=== PATIENT | male | born 1980 | race Caucasian/White ===

== ENCOUNTER 2023-08-18 13:15 | Inpatient (IN) | payer MEDICAID ==
[~2023-08-18] VITALS: Ht 177.8 cm; Wt 105.3 kg
[2023-08-18 14:14] LABS: Basophils # (auto) 0 10 ^3/uL (0-0.2); Basophils % (auto) 0.5 % (0.0-2.0); Eosinophils # (auto) 0.1 10 ^3/uL (0-0.8); Eosinophils % (auto) 1.2 % (0.0-7.0); Hematocrit 39.4 % (41.0-53.0); Hemoglobin 13.2 g/dL (13.5-17.5); Lymphocytes # (auto) 2.3 10 ^3/uL (0.4-5.4); Lymphocytes % (auto) 25.8 % (10.0-50.0); Mean Corpuscular Hgb Conc. 33.6 g/dL (32.0-36.0); Mean Corpuscular Volume 86.4 fL (80.0-100.0); Monocytes # (auto) 0.6 10 ^3/uL (0-1.3); Monocytes % (auto) 6.7 % (0.0-12.0); Neutrophils % (auto) 65.8 % (37.0-80.0); Nucleated Red Blood Cells % 0.1 %; Red Blood Cells 4.55 10^6/uL (4.5-5.90); Red Cell Distribution Width 13.8 % (11.8-14.3); White Blood Cell 9.1 10^3/uL (4.4-10.8)
[2023-08-18 14:33] LABS: Alanine Aminotransferase 14 U/L (7-40); Albumin 4.5 g/dL (3.2-4.8); Alkaline Phosphatase 104 U/L (46-116); Anion Gap 6 (5-15); Aspartate Aminotransferase < 8 U/L (13-40); BUN/Creatinine Ratio 11.7 (10.0-20.0); Bilirubin, Total 0.5 mg/dL (0.2-1.0); Blood Urea Nitrogen 13 mg/dL (9-23); Calcium 9.7 mg/dL (8.5-10.1); Carbon Dioxide 28 mmol/L (20-30); Chloride 103 mmol/L (98-107); Glucose 102 mg/dL (74-106); Potassium 4.6 mmol/L (3.5-5.1); Sodium 137 mmol/L (136-145); Total Protein 6.9 g/dL (5.7-8.2)
[2023-08-18 14:37] LABS: Partial Thromboplastin Time 29.6 SEC (24.5-34.5); Prothrombin Time 10.5 sec (9.3-11.8)
[2023-08-18 14:42] LABS: CRP High Sensitivity 3.56 mg/dL (<1.0)
[2023-08-18 14:53] LABS: Erythrocyte Sedimentation Rate 18 mm/hr (0-20)
[2023-08-18] MEDS ORDERED: ENOXAPARIN SOD 100 MG/1 ML SYRINGE SC ONE (19:15)
[2023-08-18] MEDS ORDERED: ONDANSETRON HCL 4 MG/2 ML VIAL IV PRN (20:45)
[2023-08-18] MEDS ORDERED: ACETAMINOPHEN 325 MG TAB PO PRN (20:45)
[2023-08-18] MEDS ORDERED: TEMAZEPAM 15 MG CAP PO PRN (22:00)
[2023-08-19 07:30] VITALS: PULSE 80; RESP 17; O2SAT 96
[2023-08-19] MEDS: ENOXAPARIN SOD 120 MG/0.8 ML SYRINGE SC SCH ×2 (10:45→21:18)
[2023-08-19] MEDS: LABETALOL HCL 200 MG TAB PO SCH ×3 (10:45→21:17)
[2023-08-19] MEDS: amLODIPine BESYLATE 5 MG TAB PO SCH (10:45)
[2023-08-19 11:46] LABS: Basophils # (auto) 0 10 ^3/uL (0-0.2); Basophils % (auto) 0.3 % (0.0-2.0); Eosinophils # (auto) 0.1 10 ^3/uL (0-0.8); Eosinophils % (auto) 1.1 % (0.0-7.0); Hematocrit 39.5 % (41.0-53.0); Hemoglobin 13.3 g/dL (13.5-17.5); Lymphocytes # (auto) 2.1 10 ^3/uL (0.4-5.4); Mean Corpuscular Hgb Conc. 33.6 g/dL (32.0-36.0); Mean Corpuscular Volume 86.4 fL (80.0-100.0); Monocytes # (auto) 0.6 10 ^3/uL (0-1.3); Monocytes % (auto) 6.6 % (0.0-12.0); Neutrophils # (auto) 6.3 10 ^3/uL (1.6-8.6); Nucleated Red Blood Cells % 0.2 %; Red Blood Cells 4.58 10^6/uL (4.5-5.90); White Blood Cell 9.1 10^3/uL (4.4-10.8)
[2023-08-19] MEDS: traZODone HCL 50 MG TAB PO SCH ×2 (13:29→21:21)
[2023-08-19] MEDS: ATORVASTATIN 20 MG TAB PO SCH ×2 (13:30→21:23)
[2023-08-19 13:53] LABS: Urine Bacteria NONE SEEN /hpf (None Seen); Urine Blood Negative /uL (Negative); Urine Clarity Clear (Clear); Urine Color Colorless (Yellow); Urine Protein, UAD Negative (Negative); Urine Specific Gravity 1.008 (1.001-1.035); Urine Urobilinogen Normal (Negative); Urine WBC 1 /hpf (0 - 3); Urine pH 6.5 (5.0-8.0)
[2023-08-19] MEDS: HYDROcodone-ACET 5/325MG TAB PO PRN (14:40)
[2023-08-19 17:15] LABS: Chloride 106 mmol/L (98-107); Potassium 4.9 mmol/L (3.5-5.1); Sodium 139 mmol/L (136-145)
[2023-08-19 17:16] LABS: Anion Gap 7 (5-15); Carbon Dioxide 26 mmol/L (20-30)
[2023-08-19 17:17] LABS: Calcium 9.8 mg/dL (8.5-10.1)
[2023-08-19 17:21] LABS: BUN/Creatinine Ratio 9.9 (10.0-20.0); Blood Urea Nitrogen 10 mg/dL (9-23); Glucose 108 mg/dL (74-106)
[2023-08-19 19:43] LABS: INR 1.09 (0.9-1.15); Prothrombin Time 11.4 sec (9.3-11.8)
[2023-08-19] MEDS ORDERED: ATOR40TA52 PO (22:23)
[2023-08-19] MEDS ORDERED: LABE100T4 PO (22:23)
[2023-08-20] VITALS (7 sets, daily range): BP systolic 99–148; BP diastolic 54–99; PULSE 72–87; RESP 16–19; TEMP 97.6–98.6; O2SAT 93–98
[2023-08-20] MEDS: amLODIPine BESYLATE 5 MG TAB PO SCH (08:45)
[2023-08-20] MEDS: LABETALOL HCL 200 MG TAB PO SCH ×2 (08:46→22:00)
[2023-08-20] MEDS: HYDROcodone-ACET 5/325MG TAB PO PRN (08:47)
[2023-08-20] MEDS: ENOXAPARIN SOD 120 MG/0.8 ML SYRINGE SC SCH ×2 (08:48→22:15)
[2023-08-20] MEDS: traZODone HCL 50 MG TAB PO SCH (22:00)
[2023-08-20] MEDS: ATORVASTATIN 20 MG TAB PO SCH (22:15)
[2023-08-21 05:00] VITALS: BP 141/81; PULSE 70; RESP 20; TEMP 97.8; O2SAT 98
[2023-08-21 09:00] VITALS: BP 136/88; PULSE 84; RESP 18; TEMP 98; O2SAT 95
[2023-08-21] MEDS: amLODIPine BESYLATE 5 MG TAB PO SCH (11:00)
[2023-08-21] MEDS: LABETALOL HCL 200 MG TAB PO SCH ×2 (11:00→21:40)
[2023-08-21] MEDS: ENOXAPARIN SOD 120 MG/0.8 ML SYRINGE SC SCH ×2 (11:04→21:41)
[2023-08-21 13:00] VITALS: BP 121/78; PULSE 84; RESP 18; TEMP 98.2; O2SAT 97
[2023-08-21 17:00] VITALS: BP 135/77; PULSE 82; RESP 18; TEMP 98.2; O2SAT 96
[2023-08-21] MEDS: ATORVASTATIN 20 MG TAB PO SCH (21:40)
[2023-08-21] MEDS: traZODone HCL 50 MG TAB PO SCH (21:41)
[2023-08-21 22:00] VITALS: BP_SYST 103; BP_SYST 132; BP_DIAS 44; BP_DIAS 85; PULSE 67; PULSE 86; RESP 18; TEMP 98.1; TEMP 98.5; O2SAT 94; O2SAT 95
[2023-08-22 05:00] VITALS: BP 117/75; PULSE 85; RESP 16; TEMP 98.3; O2SAT 95
[2023-08-22] MEDS: HYDROcodone-ACET 5/325MG TAB PO PRN (07:14)
[2023-08-22 09:00] VITALS: BP 141/87; PULSE 81; RESP 18; TEMP 97.9; O2SAT 98
[2023-08-22] MEDS: amLODIPine BESYLATE 5 MG TAB PO SCH (09:18)
[2023-08-22] MEDS: ENOXAPARIN SOD 120 MG/0.8 ML SYRINGE SC SCH (09:19)
[2023-08-22] MEDS: LABETALOL HCL 200 MG TAB PO SCH (09:19)
[2023-08-22] MEDS ORDERED: APIX5TAB PO (09:35)
[2023-08-22] MEDS ORDERED: TRAM50TA2 PO (09:35)
[2023-08-22 13:09] VITALS: BP 129/87; PULSE 79; TEMP 36.6
== END 2023-08-22 15:03 | disposition home or self-care (01) | DRG 197 ==
LOC: ER 13:15 → OVERFLOW 20:41 → CENTRAL 08-19 21:32
PROVIDERS: ADMIT Nurse Practitioner; ATTEND Family Medicine
DX: I82.411 Acute embolism and thrombosis of right femoral vein (principal); I82.431 Acute embolism and thrombosis of right popliteal vein; I10 Essential (primary) hypertension; E78.00 Pure hypercholesterolemia, unspecified; F32.A Depression, unspecified; I82.441 Acute embolism and thrombosis of right tibial vein; Z90.49 Acquired absence of other specified parts of digestive tract; Z91.041 Radiographic dye allergy status
CPT/HCPCS: 36415; 80048; 80053; 81001; 82962; 83605; 84484; 85025; 85610; 85652; 85730; 86141; 93971; G0378